=== PATIENT | male | born 1975 | race Caucasian/White ===

== ENCOUNTER 2023-12-31 08:32 | Day surgery (SDC) | payer BC ==
[~2023-12-31] VITALS: Ht 177.8 cm; Wt 84.0 kg
[~2023-12-31 08:32] MED LIST: LR 1,000 ML IV SCH; Ondansetron 4 MG/2 ML VIAL IV PRN
[2023-12-31] MEDS ORDERED: Lidocaine PF 2% (20 MG/ML) 5 ML VIAL ONE (09:09)
[2023-12-31] MEDS ORDERED: ZYRTEC 10MG10 MG PO (09:16)
[2023-12-31 09:24] VITALS: BP 142/98; PULSE 55; TEMP 97
[2023-12-31 10:35] VITALS: BP 133/89; PULSE 61; TEMP 97
--- NOTE | 2023-12-31 10:35 | NUR ---
PATIENT AMBULATED TO CHAIR WITH STEADY GAIT, ASSIST OF 2. ALERT AND AWAKE. DENIES PAIN, NAUSEA AND SHORTNESS OF BREATH. BREATHING REGULAR AND UNLABORED ON ROOM AIR. SKIN WARM AND DRY. IV IN PLACE. NURSE HANDOFF COMPLETED IN ROOM. SEE CHART FOR VITAL SIGNS. PATIENT HAD A MUFFIN AND SODA. BOTH FOOD AND DRINK TOLERATED WELL. CALL LIGHT IN REACH. SPOUSE PRESENT IN ROOM.
[2023-12-31 11:00] VITALS: BP 149/95; PULSE 52
[2023-12-31 11:05] VITALS: BP 149/95; PULSE 58
[2023-12-31 11:10] VITALS: BP 145/94; PULSE 62
--- NOTE | 2023-12-31 11:13 | NUR ---
1105: MET WITH PATIENT AND SPOUSE IN ROOM TO DISCUSS PROCEDURE. DISCHARGE TEACHING COMPLETED WITH PRINTED EDUCATION AND INSTRUCTIONS SENT HOME WITH PATIENT. PATIENT VERBALIZED UNDERSTANDING OF TEACHING. 1108: IV REMOVED. GAUZE AND COBAN PLACED OVER SITE. 1113: PATIENT DISCHARGED HOME WITH [facility] TRANSPORT.
== END 2023-12-31 11:13 | disposition home or self-care (01) ==
LOC: SDCO 08:32
DX: Z12.11 Encounter for screening for malignant neoplasm of colon (principal); D12.8 Benign neoplasm of rectum; K64.0 First degree hemorrhoids; K64.4 Residual hemorrhoidal skin tags; Z80.0 Family history of malignant neoplasm of digestive organs
CPT/HCPCS: J2704; J7120